=== PATIENT | female | born 1985 | race Caucasian/White ===

== ENCOUNTER 2017-12-12 03:42 | Emergency (ER) | payer MEDICAID | END 2017-12-12 05:55 | disposition home or self-care (01) | LOC: D.ER 03:42 | DX: S00.93XA Contusion of unspecified part of head, initial encounter (principal); Y04.2XXA Assault by strike against or bumped into by another person, initial encounter; Y93.89 Activity, other specified; Y92.019 Unspecified place in single-family (private) house as the place of occurrence of the external cause; S50.11XA Contusion of right forearm, initial encounter; S16.1XXA Strain of muscle, fascia and tendon at neck level, initial encounter ==

== ENCOUNTER 2018-06-15 16:48 | Emergency (ER) | payer MEDICAID ==
[~2018-06-15] VITALS: Ht 167.6 cm; Wt 75.0 kg
[2018-06-15 16:57] VITALS: Ht 167.6 cm; Wt 75.0 kg
[2018-06-15] MEDS ORDERED: TYLENOL W/CODEI1 TAB PO (18:36)
[2018-06-15] MEDS ORDERED: CYCLOBENZAPRINE10 MG PO (18:36)
== END 2018-06-15 19:15 | disposition home or self-care (01) ==
LOC: D.ER 16:48
DX: S16.1XXA Strain of muscle, fascia and tendon at neck level, initial encounter (principal); Y04.2XXA Assault by strike against or bumped into by another person, initial encounter; Y93.89 Activity, other specified; Y92.019 Unspecified place in single-family (private) house as the place of occurrence of the external cause; M62.838 Other muscle spasm; F17.200 Nicotine dependence, unspecified, uncomplicated

== ENCOUNTER → 2018-06-15 | Emergency (ER) | payer MEDICAID ==
[~2018-06-15] MED LIST: CYCLOBENZAPRINE10 MG PO; TYLENOL W/CODEI1 TAB PO
[2018-06-15 16:57] VITALS: BMI 26.7
== END | disposition home or self-care (01) ==
LOC: CANPREER → D.ER 16:45
DX: S16.1XXA Strain of muscle, fascia and tendon at neck level, initial encounter (principal); Y04.2XXA Assault by strike against or bumped into by another person, initial encounter; Y93.89 Activity, other specified; Y92.019 Unspecified place in single-family (private) house as the place of occurrence of the external cause; M62.838 Other muscle spasm; F17.200 Nicotine dependence, unspecified, uncomplicated